=== PATIENT | female | born 1965 | race Caucasian/White ===

== ENCOUNTER 2021-04-28 18:21 | Emergency (ER) | payer OTHER ==
[2021-04-28] MEDS ORDERED: Fentanyl 100 MCG/2 ML VIAL ONE (18:42)
[2021-04-28] MEDS ORDERED: Boostrix 0.5 ML (Tdap) VIAL ONE (18:42)
[2021-04-28 18:56] LABS: #Basophils 0.1 10x3/uL (0.0-0.2); #Eosinphils 0.4 10x3/uL (0.0-0.5); #Monocytes 0.8 10x3/uL (0.0-1.1); #Neutrophils 9.1 10x3/uL (1.5-8.4); %Basophils 0.4 % (0.0-2.0); %Eosinophils 2.2 % (0.0-6.0); %Monocytes 5.1 % (0.0-10.0); %Neutrophils 56.3 % (40.0-75.0); Hemoglobin 13.9 g/dL (12.0-15.5); Mean Corpuscular HGB CONC 31.9 g/dL (32.0-36.0); Mean Corpuscular Hemoglobin 29.1 pg (27.0-33.0); Mean Corpuscular Volume 91.2 fl (81.6-98.3); Platelet Count 349 10x3/uL (150-450); RBC Distribution Width 13.3 % (11.5-14.5); Red Blood Cell (RBC) Count 4.78 10x6/uL (3.90-5.03); White Blood Cell (WBC) Count 16.2 10x3/uL (3.5-10.5)
[2021-04-28 19:09] LABS: ALT (SGPT) 25 U/L (8-55); AST (SGOT) 19 U/L (5-34); Alkaline Phosphatase 101 U/L (40-110); Anion Gap 13 mmol/L (10-20); BUN (Urea Nitrogen) 10 mg/dL (9.8-20.1); Bilirubin, Total 0.2 mg/dL (0.2-1.2); Calc. Creatinine Clearance 0 mL/min (70-130); Calcium 9.1 mg/dL (7.8-10.44); Carbon Dioxide 25 mmol/L (22-29); Chloride 104 mmol/L (98-107); Glucose 123 mg/dL (70-105); Potassium 3.9 mmol/L (3.5-5.1); Sodium 138 mmol/L (136-145)
[2021-04-28] MEDS ORDERED: Bacitracin 1 PK ONE ×3 (19:47→20:49)
[2021-04-28] MEDS ORDERED: Ketorolac Tromethamine 30 MG/ML VIAL ONE (20:45)
[2021-04-28 21:34] LABS: Lactic Acid 2.5 mmol/L (0.5-2.2)
== END 2021-04-28 22:49 | disposition home or self-care (01) ==
LOC: CSHERS 18:21
DX: S22.41XA Multiple fractures of ribs, right side, initial encounter for closed fracture (principal); S92.325A Nondisplaced fracture of second metatarsal bone, left foot, initial encounter for closed fracture; S22.32XA Fracture of one rib, left side, initial encounter for closed fracture; S51.801A Unspecified open wound of right forearm, initial encounter; S60.221A Contusion of right hand, initial encounter; S80.812A Abrasion, left lower leg, initial encounter; S80.811A Abrasion, right lower leg, initial encounter; I10 Essential (primary) hypertension; M19.90 Unspecified osteoarthritis, unspecified site; Z23 Encounter for immunization; V23.4XXA Motorcycle driver injured in collision with car, pick-up truck or van in traffic accident, initial encounter
CPT/HCPCS: 29515; 36415; 70450; 71045; 71260; 72125; 74177; 80053; 83605; 85025; 90715; 93005; 94799; G0390; J1885; J3010

== ENCOUNTER 2021-05-02 18:01 | Emergency (ER) | payer OTHER | END 2021-05-02 20:07 | disposition home or self-care (01) | LOC: CSHERS 18:01 | DX: S50.11XA Contusion of right forearm, initial encounter (principal); I10 Essential (primary) hypertension; F17.210 Nicotine dependence, cigarettes, uncomplicated; V89.2XXA Person injured in unspecified motor-vehicle accident, traffic, initial encounter; Y92.410 Unspecified street and highway as the place of occurrence of the external cause ==

== ENCOUNTER 2021-07-03 14:34 | Outpatient (CLI) | payer OTHER | END 2021-07-03 14:35 | disposition home or self-care (01) | LOC: CSHRAD 14:34 | PROVIDERS: ATTEND Family Medicine | DX: M19.90 Unspecified osteoarthritis, unspecified site (principal) ==

== ENCOUNTER 2023-07-18 18:34 | Emergency (ER) | payer OTHER | END 2023-07-18 22:50 | disposition home or self-care (01) | LOC: CSHERS 18:34 | DX: T81.89XA Other complications of procedures, not elsewhere classified, initial encounter (principal); S81.012D Laceration without foreign body, left knee, subsequent encounter; I10 Essential (primary) hypertension; F17.210 Nicotine dependence, cigarettes, uncomplicated; X58.XXXD Exposure to other specified factors, subsequent encounter | CPT/HCPCS: 99282 ==